=== PATIENT | female | born 1975 | race American Indian/Alaskan Native ===

== ENCOUNTER 2017-04-10 11:03 | Inpatient (IN) | payer BC ==
[2017-04-06 09:56] LABS: Basophils % (Auto) 0.8 % (0.0-1.8); Eosinophils % (Auto) 1.6 % (0.0-4.3); Hematocrit 34.6 % (30.3-42.9); Hemoglobin 11.1 gm/dl (10.1-14.3); Mean Corpuscular HGB Conc 32 % (30-34); Mean Corpuscular Hemoglobin 27 pg (28-32); Mean Corpuscular Volume 83 fl (79-97); Platelet Count 314 K/mm3 (140-440); Red Blood Count 4.15 M/mm3 (3.65-5.03); Red Cell Distribution Width 13.8 % (13.2-15.2); White Blood Count 6.7 K/mm3 (4.5-11.0)
[2017-04-06 10:06] LABS: Anion Gap 16 mmol/L; Blood Urea Nitrogen 10 mg/dL (7-17); Carbon Dioxide 25 mmol/L (22-30); Chloride 107.2 mmol/L (98-107); Glucose 100 mg/dL (65-100); Potassium 3.9 mmol/L (3.6-5.0); Sodium 144 mmol/L (137-145)
--- NOTE | 2017-04-06 10:06 | Anesthesia Consultation ---
Anesthesia Consult and Med Hx Date of service: 04/06/17 - Airway Anesthetic Teeth Evaluation: Good ROM Head & Neck: Adequate Mental/Hyoid Distance: Adequate Mallampati Class: Class III Intubation Access Assessment: Possibly Difficult - Pre-Operative Health Status ASA Pre-Surgery Classification: ASA3 Proposed Anesthetic Plan: General - Cardiovascular System Hx Hypertension: Yes (x 1yr) - Central Nervous System Hx Psychiatric Problems: Yes (anxiety/depression) - Hematic Hx Anemia: Yes - Other Systems Hx Alcohol Use: Yes (occas) Hx Cancer: No Hx Obesity: Yes (morbid obesity BMI 41.7)
--- NOTE | 2017-04-09 16:10 | Admit Criteria Form ---
Admission Criteria Documentation: AMBULATORY SURGERY EXCEPTION CRITERIA Ambulatory Surgery Exception Criteria ( Place 'X' for any and all applicable criteria): Surgery or procedure performed on ambulatory basis may require inpatient stay for[A] ANY ONE of the following(1)(2)(3)(4)(5)(6)(7)(8)(9): [X] I. A preoperative situation, condition, or finding that warrants inpatient stay as indicated by ANY ONE of the following: [] a) Inpatient care needed because of severity of a disease or condition rather than the surgery (eg, severe cardiac or respiratory disease, severe infection) (15) (16 ) (17) (18) [] b) Emergent procedure (eg, angioplasty for acute ischemia)(19) [] c) Complex surgical approach or situation as indicated by ANY ONE of the following(3): [] i) Open approach needed instead of usual endoscopic, transcatheter, or other less invasive procedure [] ii) Difficult approach because of previous operation [] iii) Airway monitoring required after open neck procedures(20)(21) [] iv) Large mass requiring unusually extensive dissection [] v) Additional complicating feature requiring inpatient care (eg, drain management)(22(23): [X] d) Major surgery in a pt with high anesthetic risk as indicated by ANY ONE of the following (2)(3)(5)(7)(8): [X] i) ASA risk class III or higher (severe systemic disease impairing function) [D] [] ii) Advanced age (eg, older than 85 years)(14)(24) [] iii) Symptomatic heart failure(25) [] iv) Symptomatic asthma or COPD(8)(21) [] v) Morbid obesity with hemodynamic or respiratory problems(20)( 21)(26)(27) [] vi) Obstructive sleep apnea(20)(21) [] vii) Former premature infants who are younger than 60 weeks [] viii) High risk for severe postoperative abnormalities (eg, severe postoperative hypocalcemia after parathyroidectomy for severe hyperparathyroidism)(27)( 28) [] ix) Unstable angina(25) [] e) Drug-related risk requiring inpatient stay as indicated by ANY ONE of the following(5)(10)(14)(32)(33) [] i) Procedure requires discontinuing drugs or other therapy (eg , antiarrhythmic medication, antiseizure medication), which necessitates inpatient observation or treatment.(18)(31) [] ii) Major surgery and high risk drug use as indicated by ANY ONE of the following: [] 1) Active abuse of cocaine or similar drug [] 2) Monoamine oxidase inhibitor use [] 3) Other drug identified as posing risk [] f) Inadequate outpatient care situation as indicated by ANY ONE of the following(5)(10)(14)(32)(33) [] i) Patient lives remote from medical facility and procedure has urgent complication potential, and temporary nearby residence cannot be arranged [] ii) Patient will have postprocedure incapacitation and inadequate assistance at home, or alternative level of care cannot be arranged. [] iii) Patient will have long general anesthesia or procedure side effect resolution time, and competent person to stay with patient on first postoperative night at home or alternative level of care cannot be arranged. []iv) Other inadequate outpatient situation that cannot be handled by other means [] II. A perioperative event, condition, or finding that warrants inpatient stay as indicated by ANY ONE of the following (1)(2)(3): [] a) Inadequate physiologic recovery: cardiovascular, respiratory, or hemodynamic status not normal or near preoperative baseline(18) [] b) Hemodynamic instability [] c) Patient not alert with near normal or baseline mental status [] d) Temperature not normal or as expected and not appropriate for outpatient treatment of condition [] e) Ambulatory or appropriate activity level status not yet achieved post procedure [E](34)(35)(36) [] f) Operative site not appropriate (eg, unexpected or excessive drainage or bleeding) [] g) Postoperative effects not resolved or adequately managed (eg, significant pain or vomiting not appropriate for outpatient or next level of care)(10)(12) [] h) Complicating features requiring inpatient care as indicated by ANY ONE of the following(37): [] i) Severe complications of procedure (eg, bowel injury, airway compromise, vascular injury,severe hemorrhage) [] ii) Extensive (eg, dissection far beyond usual scope of procedure ) or prolonged (eg, 120 minutes beyond usual) surgery needed requiring inpatient postoperative care [] iii) Conversion to an open or complex procedure that requires inpatient care (eg, open vs laparoscopic cholecystectomy, abdominal vs vaginal hysterectomy)(38) [] iv) Comorbid condition or test result identified during or post procedure that requires inpatient care (7) [] v) Malignant hyperthermia(30) [] vi) Other complicating feature requiring inpatient care(22)(23) Inpatient stay may be needed until ALL of the following are present (1)(2)(3)(4) (5)(6)(10)(14)(33)(40): []a) Physiologic recovery: cardiovascular, respiratory, and hemodynamic status normal or near preoperative baseline []b) Hemodynamic stability []c) Patient alert, with near normal or baseline mental status []d) Temperature appropriate: patient afebrile or temperature appropriate for outpt treatment of condition []e) Activity level appropriate: ambulatory or appropriate activity level post procedure []f) Operative site appropriate as indicated by ALL of the following: []i) Site dry or with expected drainage []ii) Any blood noted is as expected for procedure. []g) Postoperative effects resolved or managed as indicated by ALL of the following: []i) Pain management appropriate for outpatient (or next level of) care(10) []ii) Minimal nausea and vomiting: if present, successfully treated with oral medication(12) []iii) Headache, dizziness, or drowsiness (if present) are mild. []h) Voiding status acceptable as indicated by ANY ONE of the following: []i) Voiding spontaneously []ii) No voiding but instructions given for follow-up in 6 to 8 hours []iii) Urinary catheter in place, and instructions given for follow-up []i) Complicating features requiring inpatient care manageable at a lower level of care(37) []j) Comorbid conditions manageable at a lower level of care(37) The original [employer] content created by [employer] has been revised. The portions of the content which have been revised are identified through the use of italic text or in bold, and [facility] [employer] has neither reviewed nor approved the modified material. All other unmodified content is copyright [employer]. Please see references footnoted in the original [employer] edition 2016 Admission Criteria Met: Yes
--- NOTE | 2017-04-09 17:37 | History and Physical Report ---
History of Present Illness Date of examination: 04/09/17 Chief complaint: dysfunctional uterine bleeding History of present illness: Pt is a 41 year old -[place] female presents for definitive management of dysfunctional uterine bleeding and fibroid uterus. 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 Family/Genetic History: diabetes, heart disease, hypertension, cancer Social history: Medications and Allergies Allergies Allergy/AdvReac Type Severity Reaction Status Date / Time azithromycin Allergy Itching Verified 04/04/17 15:02 Home Medications Medication Instructions Recorded Confirmed Last Taken Type Cariprazine HCl [Vraylar] 4.5 mg PO DAILY 04/04/17 04/04/17 Unknown History LORazepam [Ativan] 1 mg PO TID PRN 04/04/17 04/04/17 Unknown History Lisinopril/Hydrochlorothiazide 1 tab PO PRN PRN 04/04/17 04/06/17 Unknown History [Zestoretic 20-12.5 mg] Active Meds: Active Medications Famotidine (Pepcid) 20 mg IV PREOP NR Stop: 04/10/17 23:59 Lactated Ringer's (Lactated Ringers) 1,000 mls @ 100 mls/hr IV DIRECT CRISPIN Midazolam HCl (Versed) 2 mg IV PREOP NR Stop: 04/10/17 23:59 Review of Systems All systems: negative - Vital Signs Vital signs: Vital Signs Temp Pulse Resp BP 97.8 F 96 H 16 150/92 04/06/17 09:25 04/06/17 09:25 04/06/17 09:25 04/06/17 09:25 Temp Pulse Resp BP Pulse Ox 97.8 F 96 H 16 150/92 04/06/17 09:25 04/06/17 09:25 04/06/17 09:25 04/06/17 09:25 - Physical Exam Breasts: Positive: deferred Cardiovascular: Regular rate Lungs: Positive: Clear to auscultation Abdomen: Positive: soft (obese ) Extremities: Positive: normal Results Result Diagrams: 04/06/17 09:40 04/06/17 09:40 All other labs normal. Assessment and Plan A: Dysfunctional Uterine Bleeding Fibroid Uterus Morbid Obesity Hypertension P: Proceed with Laparoscopic-assisted vaginal hysterectomy, bilateral salpingectomy and other indicated procedures.
[~2017-04-10 11:03] MED LIST: ANCEF/STERILE WATER 2 GM/20 ML 2 GM/20 ML SYRINGE IV SCH; LACTATED RINGERS 1,000 ML IV SCH; MARCAINE 0.5% INFILTRATI ONE; NACL 0.9% IR ONE; PEPCID IV NR; VERSED IV NR
[2017-04-10] MEDS ORDERED: ZOFRAN ONE (13:00)
[2017-04-10] MEDS ORDERED: DECADRON ONE (13:09)
[2017-04-10] MEDS ORDERED: XYLOCAINE MPF 2% ONE (13:10)
[2017-04-10] MEDS ORDERED: SUBLIMAZE ONE (13:10)
[2017-04-10] MEDS ORDERED: ZEMURON IV ONE (13:10)
[2017-04-10] MEDS ORDERED: DIPRIVAN 10 MG/ML IV ONE (13:10)
[2017-04-10] MEDS ORDERED: MARCAINE 0.5% 30 ML INFILTRATI ONE (13:22)
[2017-04-10] MEDS ORDERED: NEOSTIGMINE ONE (13:35)
[2017-04-10] MEDS ORDERED: ROBINUL ONE ×3 (13:35→15:44)
[2017-04-10] MEDS ORDERED: THROMBIN (BOVINE) TP ONE ×2 (13:51→17:09)
[2017-04-10] MEDS ORDERED: GELFOAM POWDER 1GM MM ONE ×2 (13:52→17:09)
[2017-04-10] MEDS ORDERED: ePHEDrine SULFATE ONE (14:07)
[2017-04-10] MEDS ORDERED: LACTATED RINGERS 1,000 ML ONE ×3 (14:08→19:59)
[2017-04-10] MEDS ORDERED: DILAUDID ONE ×2 (14:53→17:18)
[2017-04-10] MEDS ORDERED: NEO SYNEPHRINE ONE (15:08)
[2017-04-10] MEDS ORDERED: MARCAINE 0.5% INFILTRATI ONE ×2 (15:38)
[2017-04-10] MEDS ORDERED: NACL 0.9% IR ONE (15:38)
[2017-04-10] MEDS ORDERED: ANCEF ONE (17:30)
--- NOTE | 2017-04-10 18:11 | Post Operative Note ---
Pre-op diagnosis: 1) Dysfunctional Uterine Bleeding 2) Uterine Fibroids Post-op diagnosis: same Findings: 1) 12 wk sized anteverted mobile but boggy uterus 2) Normal appearing ovaries and fallopian tubes Procedure: Laparoscopic-Assisted Vaginal Hysterectomy with bilateral salpingectomy Anesthesia: LEROY Surgeon: AL TAYLOR Water Trainer: RENE FORMAN Estimated blood loss: other (300 mL) Pathology: list (uterus, cervix, bilateral fallopian tubes) Specimen disposition: to lab Condition: stable Disposition: PACU
--- NOTE | 2017-04-10 18:11 | Operative Report ---
Operative Report Operative Report: Date of procedure: April 10, 2017 Preoperative Diagnosis: 1) Dysfunctional Uterine Bleeding 2) Fibroid Uterus 3) Morbid Obesity Postoperative diagnosis: Same Surgeon: Gracy Garcia MD Data Analyst Report Writer: Crys Malone MD Anesthesia: GETA Procedure: Laparoscopic-assisted vaginal hysterectomy with bilateral salpingectomy Findings: 1) 12 wk sized anteverted, boggy uterus 2) Normal appearing ovaries and fallopian tubes EBL: 300 mL IVF: 2200 mL Urine output: 250 mL, clear at the end of the procedure Specimen: Uterus, cervix and bilateral fallopian tubes to pathology Complications: None. Counts correct x 3 Drains: Purcell to gravity Disposition: Stable to PACU Indication for procedure: Pt is a 41 year old -Wallis[place] female presents for definitive management of dysfunctional uterine bleeding and fibroid uterus. Operation in detail: After the risks, benefits, alternatives and complications were explained to the patient, she gave informed consent for the procedure. She was subsequently taken to the operating room with her IV noted to be running well and placed in the dorsal supine position. SCDs were noted to be in place and functioning. General anesthesia was then induced without difficulty. The patient was then placed in the dorsal lithotomy position with Agapito stirrups. Exam under anesthesia revealed an anteverted 12 wk sized mobile uterus. The patient was then prepped and draped in a normal sterile fashion. A timeout was then performed. A purcell catheter was placed and the bladder was emptied. A bivalve speculum was placed into the vagina. A single-tooth tenaculum was then placed on the anterior lip of the cervix for traction. The uterus was sounded to 9 cm. Stay sutures were placed on either side of the cervix at the 3 o clock and 9 o clock positions. A large V-Care uterine manipulator was introduced without difficulty. A glove filled with a lap was placed into the vagina. The surgeon's gloves were changed. Two towel clamps were applied to the periumbilical skin for manual elevation of the abdomen. A small horizontal incision was made 4 cm above the umbilicus. A long Veress needle was introduced into the peritoneal cavity at a straight angle without difficulty. A saline drop test was performed to confirm intraperitoneal placement. Pneumoperitoneum was established with carbon dioxide gas to a pressure of 15 mm Hg. A 10 mm balloon trocar was inserted into the abdomen under direct visualization. Intraabominal placement was confirmed with the laparoscope. An intraabdominal survey revealed pelvic anatomy was as noted above. Two 10 mm trocars were inserted in the bilateral lower quadrants 8 cm from the midline under direct laparoscopic visualization. Trendelenberg position was obtained to facilitate movement of the bowel and omentum out of the pelvis. Next, the uterus was elevated from the pelvis with a uterine manipulator. Using a 10 mm Ligasure device, the fallopian tubes were bilaterally excised. Next, the broad, utero-ovarian and round ligaments on the right side were sequentially transected with the Ligasure device until the uterine artery was exposed. The same procedure was repeated on the left side. The vesico-uterine peritoneum was opened with monopolar scissors and the bladder was dissected off the lower uterine segment and upper vagina. With the V-Care pushing into the pelvis, the cervico-vaginal junction was delineated by the colpotomy ring, which was apparent through the tissue. During the vaginal dissection there was some bleeding from the vaginal vessels that was controlled with a combination of the Ligasure and monopolar coagulation. The vagina was entered posteriorly with the monopolar scissors and incised circumferentially along the cervico- vaginal junction. The uterus was then delivered through the vagina and sent to pathology. Attention was then turned to the vaginal portion of the case. The patient was placed in high dorsal lithotomy position. The vaginal cuff was grasped with Allis clamps then reapproximated with figure of eights of 0-Vicryl suture. An imbricating layer of 2-0 Vicryl was used to reapproximate the raw tissue edges. A moist vaginal pack was placed. The surgeon's gloves were changed. The pnuemoperitoneum was reestablished and the pelvis was inspected with no active bleeding noted. Thrombin-gel foam was then placed over the vaginal cuff. All instruments were removed from the abdomen. The fascial defects of the three trocar sites were closed with a Oscar-Ronquillo device using 0-Vicryl. All three skin incisions were injected with 0.5% Marcaine then reapproximated with 4 -0 Vicryl in a subcuticular fashion. The incisions were then covered with steri- strips, telfa and tegaderm dressings. At this time the procedure was ended. The patient was returned to the dorsal supine position and extubated without difficulty. She was subsequently taken to the PACU in stable condition. All counts were correct x 3.
[2017-04-10] MEDS ORDERED: NARCAN 0.4 MG/1 ML IV PRN ×2 (18:31→23:54)
[2017-04-10] MEDS ORDERED: MORPHINE PCA 30MG/30ML IV SCH ×2 (19:00→23:54)
[2017-04-10] MEDS ORDERED: DULCOLAX PR PRN (23:54)
[2017-04-10] MEDS ORDERED: ZOFRAN IV PRN ×2 (23:54)
[2017-04-10] MEDS ORDERED: PHENERGAN PR PRN ×2 (23:54)
[2017-04-10] MEDS ORDERED: BENADRYL IV PRN (23:54)
[2017-04-10] MEDS ORDERED: TYLENOL PO PRN (23:54)
[2017-04-11] MEDS: TORADOL IV SCH ×4 (00:10→19:08)
[2017-04-11] MEDS: ANCEF/NS 1 GM/50 ML 1 GM/50 ML BAG IV SCH ×2 (01:51→09:51)
[2017-04-11] MEDS ORDERED: LACTATED RINGERS 1,000 ML IV SCH (05:05)
[2017-04-11 06:12] LABS: Hematocrit 30.4 % (30.3-42.9); Hemoglobin 9.8 gm/dl (10.1-14.3)
[2017-04-11 06:23] LABS: Anion Gap 17 mmol/L; Blood Urea Nitrogen 8 mg/dL (7-17); Calcium 8.2 mg/dL (8.4-10.2); Carbon Dioxide 24 mmol/L (22-30); Chloride 102.5 mmol/L (98-107); Glucose 109 mg/dL (65-100); Potassium 4.2 mmol/L (3.6-5.0); Sodium 139 mmol/L (137-145)
[2017-04-11] MEDS: MILK OF MAGNESIA PO SCH ×2 (09:17→18:07)
--- NOTE | 2017-04-11 10:41 | Progress Note ---
Assessment and Plan A: POD#1 s/p LAVH with bilateral salpingectomy, Asymptomatic anemia P: Routine advances. Subjective - Subjective Date of service: 04/11/17 Principal diagnosis: s/p LAVH Interval history: No overnight events. Patient reports: appetite normal, pain well controlled, no voiding normally ( purcell in place ), no flatus, no bowel movement, no ambulating normally (SCDs in place ), no nauseated Objective - Vital Signs Latest vital signs: Vital Signs Temp Pulse Pulse Resp BP BP Pulse Ox 04/11/17 06:06 99.0 F 78 20 102/56 04/11/17 01:57 22 04/11/17 01:33 99.5 F 64 20 106/52 04/11/17 00:10 20 04/11/17 00:05 20 04/10/17 22:35 98.3 F 85 20 112/66 04/10/17 22:20 20 04/10/17 20:20 82 22 04/10/17 19:45 98.3 F 101 H 20 105/53 95 04/10/17 19:30 102 H 22 105/58 96 04/10/17 19:15 112 H 18 113/63 95 04/10/17 19:00 103 H 20 111/61 95 04/10/17 18:45 105 H 21 109/61 95 04/10/17 18:30 101 H 18 111/62 96 04/10/17 18:15 95 H 21 113/56 96 04/10/17 18:00 81 18 115/60 100 04/10/17 17:55 82 22 111/59 100 04/10/17 17:50 94 H 20 118/56 100 04/10/17 17:48 97.1 F L 101 H 15 110/58 100 04/10/17 11:20 99.4 F 95 H 16 156/74 97 Intake and Output 04/10/17 04/11/17 04/11/17 22:59 06:59 14:59 Intake Total 800 50 Output Total 350 1400 Balance 450 -1350 Intake: IV 800 50 ANCEF/NS 1 GM/50 ML 1 gm 50 In 50 ml @ 100 mls/hr IV Q8H [facility] Rx#:[id number] Oral 0 Output: Urine 350 1400 Indwelling Catheter 1400 Other: Total, Intake Amount 0 Total, Output Amount 1400 Voiding Method Indwelling Catheter Indwelling Catheter - Exam Breasts: Present: deferred Cardiovascular: Present: Regular rate Lungs: Present: Clear to auscultation Abdomen: Present: soft (obese ) Extremities: Present: normal (SCDs in place ) Incision: Present: dressed - Labs Labs: Abnormal lab results 04/11/17 04/11/17 Range/Units 05:32 05:32 Hgb 9.8 L (10.1-14.3) gm/dl Glucose 109 H (65-100) mg/dL Calcium 8.2 L (8.4-10.2) mg/dL
[2017-04-11] MEDS ORDERED: MORPHINE IV PRN (11:30)
[2017-04-11] MEDS: PERCOCET 5/325 PO PRN ×2 (11:50→19:07)
[2017-04-11] MEDS ORDERED: MOTRIN PO PRN (12:00)
[2017-04-12] MEDS: MILK OF MAGNESIA PO SCH ×3 (00:26→07:21)
[2017-04-12] MEDS: PERCOCET 5/325 PO PRN ×2 (00:30→05:47)
[2017-04-12] MEDS: TORADOL IV SCH ×2 (00:32→05:48)
[2017-04-12 05:31] VITALS: BP 99/66
--- NOTE | 2017-04-12 08:35 | Progress Note ---
Assessment and Plan A: POD#2 s/p LAVH with bilateral salpingectomy, Asymptomatic anemia P: Routine postoperative care. Discharge today with follow up for incision check on 04/30/17. Subjective - Subjective Date of service: 04/12/17 Principal diagnosis: s/p LAVH Interval history: Pt doing well. She had two bowel movements yesterday and is excited to go home. Patient reports: appetite normal, voiding normally, pain well controlled, flatus , bowel movement, ambulating normally, no nauseated Objective - Vital Signs Latest vital signs: Vital Signs Temp Pulse Resp BP 04/12/17 05:48 18 04/12/17 05:47 18 04/12/17 04:30 98.4 F 81 18 99/66 04/12/17 00:32 18 04/12/17 00:30 18 04/12/17 00:00 98.5 F 88 18 100/63 04/11/17 20:00 98.9 F 78 16 93/58 04/11/17 16:00 98.5 F 78 18 98/62 04/11/17 12:33 98.9 F 88 18 108/62 04/11/17 08:45 99.4 F 82 20 97/51 Intake and Output 04/11/17 04/12/17 04/12/17 22:59 06:59 14:59 Intake Total 240 Output Total 100 Balance -100 240 Intake: Oral 240 Output: Urine 100 Void 100 Other: Total, Intake Amount 240 Total, Output Amount 100 Voiding Method Toilet # Voids Void 1 1 # Bowel Movements 2 - Exam Breasts: Present: deferred Cardiovascular: Present: Regular rate Lungs: Present: Clear to auscultation Abdomen: Present: soft (obese) Extremities: Present: normal Incision: Present: dressed
--- NOTE | 2017-04-12 08:39 | Discharge Summary ---
Providers - Providers Date of Admission: 04/10/17 18:19 Date of discharge: 04/12/17 Attending physician: AL TAYLOR Primary care physician: TONO ANTHONY Hospitalization Reason for admission: other (hysterectomy ) Procedure details: Please see operative note. Incision: intact Discharge diagnosis: other (DUB, Fibroid uterus, Morbid Obesity ) Hospital course: Pt was admitted for and underwent LAVH with bilateral salpingectomy which she tolerated well. Her postoperative course was uncomplicated and she met discharge criteria on POD#2 and will follow up for an incision check on . Condition at discharge: Stable Disposition: - TO HOME OR SELFCARE - Discharge Diagnoses (1) DUB (dysfunctional uterine bleeding) Status: Acute (2) Fibroid uterus Status: Acute Qualifiers: Uterine leiomyoma location: unspecified location Qualified Code(s): D25.9 - Leiomyoma of uterus, unspecified (3) Morbid obesity Status: Acute Qualifiers: Obesity type: unspecified obesity type Qualified Code(s): E66.01 - Morbid ( severe) obesity due to excess calories (4) Hypertension Status: Acute Qualifiers: Hypertension type: unspecified secondary hypertension Qualified Code(s): I15.9 - Secondary hypertension, unspecified; I15 - Secondary hypertension (5) S/P laparoscopic assisted vaginal hysterectomy (LAVH) Status: Acute (6) Anemia Status: Acute Qualifiers: Anemia type: unspecified type Iron deficiency anemia type: I Vitamin B12 deficiency anemia type: V Folate deficiency anemia type: F Bone marrow failure anemia type: B Hemolytic anemia type: H Other causes of anemia: O Chronic kidney disease stage: C Qualified Code(s): D64.9 - Anemia, unspecified Plan - Discharge Medications Prescriptions: Ferrous Sulfate [Feosol 325 MG tab] 325 mg PO BID #60 tablet Ibuprofen [Motrin 800 MG tab] 800 mg PO Q8H PRN #30 tablet PRN Reason: Pain, Mild (1-3) oxyCODONE /ACETAMINOPHEN [Percocet 5/325 mg] 1 tab PO Q6H PRN #30 tablet PRN Reason: Pain, Moderate (4-6) Sulfamethoxazole/Trimethoprim [Bactrim DS TAB] 1 each PO BID #14 tablet - Provider Discharge Summary Activity: routine, no sex for 6 weeks, no heavy lifting 4 weeks, no strenuous exercise Diet: routine Instructions: routine Additional instructions: [] Smoking cessation referral if applicable(refer to patient education folder for contact #) [] Refer to [facility]'s [facility] Booklet Call your doctor immediately for: * Fever > 100.5 * Heavy vaginal bleeding ( >1 pad per hour) * Severe persistent headache * Shortness of breath * Reddened, hot, painful area to leg or breast * Drainage or odor from incision. * Keep incision clean and dry at all times and follow doctor's instructions regarding bathing/showering - Follow up plan Follow up: TONO ANTHONY MD [Primary Care Provider] - 7 Days AL TAYLOR MD [Staff Physician] - 04/30/17 (incision check )
== END 2017-04-12 11:20 | disposition home or self-care (01) | DRG 742 ==
LOC: OR 11:03 → OB 18:19
PROVIDERS: ADMIT Obstetrics & Gynecology; ATTEND Obstetrics & Gynecology
PROC: 0UT9FZZ Resection of Uterus, Via Natural or Artificial Opening With Percutaneous Endoscopic Assistance (ICD-10-PCS; principal; 2017-04-10)
PROC: 0UT7FZZ Resection of Bilateral Fallopian Tubes, Via Natural or Artificial Opening With Percutaneous Endoscopic Assistance (ICD-10-PCS; 2017-04-10)
DX: D25.9 Leiomyoma of uterus, unspecified (principal); Z68.41 Body mass index [BMI] 40.0-44.9, adult; N93.8 Other specified abnormal uterine and vaginal bleeding; E66.01 Morbid (severe) obesity due to excess calories; I10 Essential (primary) hypertension; F32.9 Major depressive disorder, single episode, unspecified; Z83.3 Family history of diabetes mellitus; Z82.49 Family history of ischemic heart disease and other diseases of the circulatory system; Z80.9 Family history of malignant neoplasm, unspecified; Z88.8 Allergy status to other drugs, medicaments and biological substances; D64.9 Anemia, unspecified
CPT/HCPCS: 36415; 80048; 84703; 85014; 85018; 85025; 86850; 86900; 86901; 88305; 88307; J0690; J1100; J1170; J1885; J2250; J2270; J2370; J2405; J2704; J2710; J3010; J7120

== ENCOUNTER 2022-06-28 19:24 | Emergency (ER) | payer OTHER ==
[2022-06-28 19:52] VITALS: BP 117/79
== END 2022-06-29 01:20 | disposition left against medical advice (07) ==
LOC: ED 19:24
DX: R07.81 Pleurodynia (principal); M54.50 Low back pain, unspecified; R51.9 Headache, unspecified; R20.0 Anesthesia of skin; Z53.21 Procedure and treatment not carried out due to patient leaving prior to being seen by health care provider

== ENCOUNTER 2022-06-29 06:09 | Emergency (ER) | payer OTHER ==
[2022-06-29 06:24] VITALS: BP 117/72
[2022-06-29 07:27] LABS: Bacteria,Urine 3+ /HPF (Negative); Mucus,Urine FEW /HPF
[2022-06-29 07:29] LABS: Basophils % (Auto) 0.6 % (0.0-1.8); Eosinophils # (Auto) 0.1 K/mm3 (0.0-0.4); Eosinophils % (Auto) 2.2 % (0.0-4.3); Hematocrit 34.3 % (30.3-42.9); Lymphocytes # (Auto) 2.3 K/mm3 (1.2-5.4); Lymphocytes % (Auto) 50.7 % (13.4-35.0); Mean Corpuscular HGB Conc 32 % (30-34); Mean Corpuscular Volume 86 fl (79-97); Monocytes # (Auto) 0.5 K/mm3 (0.0-0.8); Platelet Count 247 K/mm3 (140-440); Red Cell Distribution Width 14.7 % (13.2-15.2)
[2022-06-29 07:33] LABS: Color,Urine Yellow (Yellow)
[2022-06-29 07:48] LABS: Alanine Aminotransferase 11 units/L (7-56); Albumin 4.2 g/dL (3.9-5); BUN/Creatinine Ratio 13; Blood Urea Nitrogen 10 mg/dL (7-17); Hemolysis Index 0
[2022-06-29 08:05] LABS: BUN/Creatinine Ratio 13; Blood Urea Nitrogen 10 mg/dL (7-17); Hemolysis Index 1
== END 2022-06-29 12:15 | disposition left against medical advice (07) ==
LOC: ED 06:09
DX: R07.81 Pleurodynia (principal); Z53.21 Procedure and treatment not carried out due to patient leaving prior to being seen by health care provider
CPT/HCPCS: 36415; 80048; 80053; 81001; 85025